=== PATIENT | female | born 1995 | race Caucasian/White ===

== ENCOUNTER 2017-01-04 20:23 | Emergency (ER) | payer BC ==
[2017-01-04 20:45] VITALS: BP 119/87
[2017-01-04] MEDS ORDERED: Acetaminophen/HYDROcodone 325-5 MG Tab PO ONE (21:47)
--- NOTE | 2017-01-06 12:23 | CR ---
INDICATION: Left shoulder pain. Decreased range of motion. No history of trauma. LEFT SHOULDER: Three views of the left shoulder revealed no definite bone or joint abnormality. MRI may be helpful for further evaluation, as felt to be clinically necessary. MTDD
--- NOTE | 2017-01-06 16:30 | ER ---
DATE SEEN: 01/04/2017 TIME SEEN: The patient was seen at 2040 hours. CHIEF COMPLAINT: Four months duration of pain in the left shoulder. She has not experienced any trauma. She tried physical therapy 2 days this week with increasing discomfort after physical therapy. She presently has 8/10 discomfort. 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 She does not perform heavy lifting or push heavy loads. She works Friday, , Friday, Friday, and Friday. She denies dysesthesia upper extremity and lower extremities. She has decreased strength in her hand because of muscle discomfort in the shoulder. No fever. No chills. No history of rheumatoid arthritis. PAST MEDICAL HISTORY: Depression. ALLERGIES: Codeine. No diabetes, heart disease, high blood pressure, or other serious illnesses. REVIEW OF SYSTEMS: Negative. PHYSICAL EXAMINATION: VITAL SIGNS: Blood pressure 119/87, heart rate 79, respirations 18, oxygen saturation 98%, temperature 36.9 degrees centigrade. HEENT: PERRLA intact. Pharynx without abnormality. LUNGS: Clear to auscultation. No cervical adenopathy. No thyromegaly. No masses in neck. HEART: S1, S2. No murmur. MUSCULOSKELETAL: Left shoulder, moderate discomfort anterior. No tenderness in long head of biceps. Mild AC discomfort. No displaced AC joint. No subluxation. Mild tenderness to the upper outer proximal portion of the humerus. No dysesthesia or compromise in sensation. Range of motion is normal with mild discomfort. DIAGNOSTIC STUDIES: X-ray reveals what suggests a cystic structure in the left upper humeral juxta articular surface that extends into the bone. It is possible there may be a growth. There is a difference in the density of the bone. Perhaps bone cyst, rule out bone growth or other significant abnormality, further follow up with orthopedist in 2 to 3 days. PLAN: Ice, Vicodin for breakthrough pain, otherwise Tylenol 1000 mg and 600 mg ibuprofen q.6 hours for pain. Off work tomorrow. ASSESSMENT: 1. Left humeral bone cyst/growth. 2. Shoulder pain. /[id number] LS/MODL
== END 2017-01-04 21:55 | disposition home or self-care (01) ==
LOC: FB.ED 20:23
DX: M25.512 Pain in left shoulder (principal); M85.622 Other cyst of bone, left upper arm; F32.9 Major depressive disorder, single episode, unspecified; Z88.5 Allergy status to narcotic agent
CPT/HCPCS: 73030-LT; 99283; A9270-GY

== ENCOUNTER 2017-06-27 13:01 | Emergency (ER) | payer BC ==
[2017-06-27] MEDS ORDERED: Ondansetron 8 MG Tab.DIS PO ONE (13:32)
[2017-06-27] MEDS ORDERED: Sodium Chloride 0.9% 1,000 ML IV ONE (13:48)
[2017-06-27] MEDS ORDERED: Promethazine 12.5 MG in Sodium Chloride 0.9% 50 ML IV STA (13:49)
[2017-06-27] MEDS ORDERED: Metoclopramide 10 MG/2 ML SDV IV STA (15:02)
--- NOTE | 2017-06-27 15:28 | EDM.PDOC ---
ED HPI GENERAL MEDICAL PROBLEM - General Chief Complaint: Abdominal Pain Stated Complaint: STOMACH PAIN Time Seen by Provider: 06/27/17 13:09 Source of Information: Reports: Patient, Family History Limitations: Reports: Other (epigastric pain, N/V) - History of Present Illness INITIAL COMMENTS - FREE TEXT/NARRATIVE: 22 years old w f came to the ed due to upper abd. pain, N/V. Pt was seen in in [place] one week ago, was given omeprazole, which did not help her symptoms. Pt denies , trauma. She was not able to eat for a weak. Pt came to the ed for further evaluation. Her vital were: BP 121/87 Pulse 87. Temp 36.9 Pulse ox 100% on RA. Onset: Unknown/Unsure Onset Date: 06/20/17 Onset Time: 08:00 Duration: Day(s):, Intermittent Location: Reports: Abdomen Quality: Reports: Ache, Burning, Dull, Same as Previous Episode Severity: Moderate Improves with: Reports: Other (not eating) Worsens with: Reports: Eating Context: Reports: Other (unknown) Associated Symptoms: Reports: Other (suprapubic pain) Abdominal Pain Score (Numeric/FACES): 6 - Related Data Allergies Allergy/AdvReac Type Severity Reaction Status Date / Time codeine Allergy Confusion Verified 06/27/17 13:11 Home Meds: Home Meds Escitalopram [Lexapro] 10 mg PO DAILY 01/04/17 [History] Albuterol Sulfate [Ventolin Hfa] 2 puff INH ASDIRECTED PRN 06/27/17 [History] Norgestimate-Ethinyl Estradiol [Tri-Previfem Tablet] 1 each PO DAILY 06/27/17 [ History] Omeprazole 20 mg PO BID 06/27/17 [History] Ondansetron [Zofran ODT] 4 mg PO Q6H PRN #20 tab.dis 06/27/17 [Rx] Sucralfate [Carafate] 1 gm PO QIDACANDBED 06/27/17 [History] Past Medical History HEENT History: Reports: Impaired Vision Cardiovascular History: Reports: None Respiratory History: Reports: None Gastrointestinal History: Reports: None Genitourinary History: Reports: None EDGER AUTOMATIC History: Reports: None Musculoskeletal History: Reports: None Neurological History: Reports: None Psychiatric History: Reports: Anxiety, Depression, Panic Attack Endocrine/Metabolic History: Reports: None Hematologic History: Reports: None Immunologic History: Reports: None Oncologic (Cancer) History: Reports: None Dermatologic History: Reports: None - Past Surgical History Head Surgeries/Procedures: Reports: None HEENT Surgical History: Reports: Oral Surgery, Tonsillectomy Cardiovascular Surgical History: Reports: None Respiratory Surgical History: Reports: None GI Surgical History: Reports: None Female Surgical History: Reports: None Endocrine Surgical History: Reports: None Neurological Surgical History: Reports: None Musculoskeletal Surgical History: Reports: Other (See Below) Other Musculoskeletal Surgeries/Procedures:: REMOVAL OF GANGLION CYST Oncologic Surgical History: Reports: None Social & Family History - Tobacco Use Smoking Status *Q: Current Every Day Smoker Years of Tobacco use: 7 Packs/Tins Daily: 1 Second Hand Smoke Exposure: No - Caffeine Use Caffeine Use: Reports: None - Recreational Drug Use Recreational Drug Use: Yes Drug Use in Last 12 Months: Yes Recreational Drug Type: Reports: Marijuana/Hashish Recreational Drug Use Frequency: Daily Recreational Drug Last Use: T-1 ED ROS GENERAL - Review of Systems Review Of Systems: See Below Constitutional: Reports: No Symptoms HEENT: Reports: No Symptoms Respiratory: Reports: No Symptoms Cardiovascular: Reports: No Symptoms Endocrine: Reports: No Symptoms GI/Abdominal: Reports: Abdominal Pain, Nausea, Vomiting : Reports: Pain (suprapubic) Musculoskeletal: Reports: No Symptoms Skin: Reports: No Symptoms Neurological: Reports: No Symptoms Psychiatric: Reports: No Symptoms Hematologic/Lymphatic: Reports: No Symptoms Immunologic: Reports: No Symptoms ED EXAM, GI/ABD - Physical Exam Exam: See Below Exam Limited By: No Limitations General Appearance: Alert, WD/WN, Mild Distress Eyes: Bilateral: Normal Appearance Ears: Normal External Exam Nose: Normal Inspection, Normal Mucosa Throat/Mouth: Normal Inspection, Normal Lips, Normal Teeth, Other (decr. moisture of mucosal membrane) Head: Atraumatic, Normocephalic Neck: Normal Inspection, Supple, Non-Tender, Full Range of Motion Respiratory/Chest: No Respiratory Distress, Lungs Clear, Normal Breath Sounds, No Accessory Muscle Use, Chest Non-Tender Cardiovascular: Normal Peripheral Pulses, Regular Rate, Rhythm, No Edema GI/Abdominal Exam: Normal Bowel Sounds, No Organomegaly, No Abnormal Bruit, Tender (epigastric) (Female) Exam: Deferred Rectal (Female) Exam: Deferred Back Exam: Normal Inspection, Full Range of Motion Extremities: Normal Inspection, Normal Range of Motion, Non-Tender, No Pedal Edema Neurological: Alert, Oriented, CN II-XII Intact, Normal Cognition, Normal Gait, Normal Reflexes, No Motor/Sensory Deficits Psychiatric: Normal Affect, Normal Mood Skin Exam: Warm, Dry, Intact, Normal Color, No Rash Lymphatic: No Adenopathy Course - Vital Signs Text/Narrative:: 22 years old w f came to the ed due to upper abd. pain, N/V. Pt was seen in in [place] one week ago, was given omeprazole, which did not help her symptoms. Pt denies , trauma. She was not able to eat for a weak. Pt came to the ed for further evaluation. Her vital were: BP 121/87 Pulse 87. Temp 36.9 Pulse ox 100% on RA. Pt is taking at home Maalox, occasionally. PE: Epigastic tenderness, suprapubic tenderness. Labs: CBC and BMP were nl. UDS was pos for THC products and Tricylics UA pos for bili, and occult blood, preg. neg Impression: Gastritis, dehydration Tx: NS. Zofran, Protronix and Reglan made her nauseas to subside. Protonix helped her gastric pain. Reexam; Nausea subsided, epigastric pain improved from a 10/10 to 3/10 pain and she felt fine to be discharged. Plan: D/C with instructions Last Recorded V/S: Last Vital Signs Temp 36.8 C 06/27/17 13:09 Pulse 61 06/27/17 15:32 Resp 14 06/27/17 15:32 BP 102/61 06/27/17 15:32 Pulse Ox 100 06/27/17 15:32 - Orders/Labs/Meds Labs: Laboratory Tests 06/27/17 06/27/17 06/27/17 Range/Units 13:32 13:32 13:32 WBC (4.5-12.0) X10-3/uL RBC (3.23-5.20) x10(6)uL Hgb (11.5-15.5) g/dL Hct (30.0-51.3) % MCV (80-96) fL MCH (27.7-33.6) pg MCHC (32.2-35.4) g/dL RDW (11.5-15.5) % Plt Count (125-369) X10(3)uL MPV (7.4-10.4) fL Neut % (Auto) (46-82) % Lymph % (Auto) (13-37) % [place] % (Auto) (4-12) % Eos % (Auto) (1.0-5.0) % Baso % (Auto) (0-2) % Neut # (Auto) (1.6-8.3) # Lymph # (Auto) (0.6-5.0) # [place] # (Auto) (0.0-1.3) # Eos # (Auto) (0.0-0.8) # Baso # (Auto) (0.0-0.2) # Sodium (135-145) mmol/L Potassium (3.5-5.3) mmol/L Chloride (100-110) mmol/L Carbon Dioxide (23-29) mmol/L BUN (5-20) mg/dL Creatinine (0.6-1.3) mg/dL Est Cr Clr Drug Dosing mL/min Estimated GFR (MDRD) (>60) BUN/Creatinine Ratio (9-20) Glucose (80-116) mg/dL Calcium (8.6-10.2) mg/dL Total Bilirubin (0.1-1.3) mg/dL Direct Bilirubin (0.1-0.2) mg/dL AST (5-27) IU/L ALT (14-26) IU/L Alkaline Phosphatase (56-112) IU/L Total Protein (6.0-8.0) g/dL Albumin (3.5-5.2) g/dL Urine Color Yellow (YELLOW) Urine Appearance Slightly cloudy (CLEAR) Urine pH 6.0 (5.0-6.5) Ur Specific [place] 1.015 (1.010-1.025) Urine Protein Negative (NEGATIVE) mg/dL Urine Glucose (UA) Normal (NEGATIVE) mg/dL Urine Ketones 15 H (NEGATIVE) mg/dL Urine Occult Blood Moderate H (NEGATIVE) Urine Nitrite Negative (NEGATIVE) Urine Bilirubin Small H (NEGATIVE) Urine Urobilinogen Normal (NEGATIVE) mg/dL Ur Leukocyte Esterase Negative (NEGATIVE) Urine RBC 0-5 (0) Urine WBC 0-5 (0) Ur Squamous Epith Cells Few H (NS,R,O) Urine Bacteria Few H (NS) Urine HCG, Qual Negative (NEGATIVE) Urine Opiates Screen Negative (NEGATIVE) Ur Oxycodone Screen Negative (NEGATIVE) Ur Propoxyphene Screen Negative (NEGATIVE) Ur Barbituates Screen Negative (NEGATIVE) Ur Tricyclics Screen Positive H (NEGATIVE) Ur Phencyclidine Scrn Negative (NEGATIVE) Ur Amphetamine Screen Negative (NEGATIVE) Urine MDMA Screen Negative (NEGATIVE) U Benzodiazepines Scrn Negative (NEGATIVE) U Cocaine Metab Screen Negative (NEGATIVE) U Marijuana (THC) Screen Positive H (NEGATIVE) 06/27/17 06/27/17 Range/Units 14:04 14:04 WBC 8.2 (4.5-12.0) X10-3/uL RBC 4.69 (3.23-5.20) x10(6)uL Hgb 13.7 (11.5-15.5) g/dL Hct 40.2 (30.0-51.3) % MCV 85.8 (80-96) fL MCH 29.2 (27.7-33.6) pg MCHC 34.1 (32.2-35.4) g/dL RDW 12.7 (11.5-15.5) % Plt Count 307 (125-369) X10(3)uL MPV 8.1 (7.4-10.4) fL Neut % (Auto) 68.3 (46-82) % Lymph % (Auto) 24.8 (13-37) % [place] % (Auto) 5.5 (4-12) % Eos % (Auto) 1 (1.0-5.0) % Baso % (Auto) 0 (0-2) % Neut # (Auto) 5.6 (1.6-8.3) # Lymph # (Auto) 2.0 (0.6-5.0) # [place] # (Auto) 0.5 (0.0-1.3) # Eos # (Auto) 0.1 (0.0-0.8) # Baso # (Auto) 0.0 (0.0-0.2) # Sodium 137 (135-145) mmol/L Potassium 3.9 (3.5-5.3) mmol/L Chloride 103 (100-110) mmol/L Carbon Dioxide 24 (23-29) mmol/L BUN 6 (5-20) mg/dL Creatinine 0.7 (0.6-1.3) mg/dL Est Cr Clr Drug Dosing 123.01 mL/min Estimated GFR (MDRD) > 60 (>60) BUN/Creatinine Ratio 8.6 L (9-20) Glucose 99 (80-116) mg/dL Calcium 9.1 (8.6-10.2) mg/dL Total Bilirubin 0.5 (0.1-1.3) mg/dL Direct Bilirubin 0.1 (0.1-0.2) mg/dL AST 24 (5-27) IU/L ALT 21 (14-26) IU/L Alkaline Phosphatase 85 (56-112) IU/L Total Protein 8.0 (6.0-8.0) g/dL Albumin 4.3 (3.5-5.2) g/dL Urine Color (YELLOW) Urine Appearance (CLEAR) Urine pH (5.0-6.5) Ur Specific [place] (1.010-1.025) Urine Protein (NEGATIVE) mg/dL Urine Glucose (UA) (NEGATIVE) mg/dL Urine Ketones (NEGATIVE) mg/dL Urine Occult Blood (NEGATIVE) Urine Nitrite (NEGATIVE) Urine Bilirubin (NEGATIVE) Urine Urobilinogen (NEGATIVE) mg/dL Ur Leukocyte Esterase (NEGATIVE) Urine RBC (0) Urine WBC (0) Ur Squamous Epith Cells (NS,R,O) Urine Bacteria (NS) Urine HCG, Qual (NEGATIVE) Urine Opiates Screen (NEGATIVE) Ur Oxycodone Screen (NEGATIVE) Ur Propoxyphene Screen (NEGATIVE) Ur Barbituates Screen (NEGATIVE) Ur Tricyclics Screen (NEGATIVE) Ur Phencyclidine Scrn (NEGATIVE) Ur Amphetamine Screen (NEGATIVE) Urine MDMA Screen (NEGATIVE) U Benzodiazepines Scrn (NEGATIVE) U Cocaine Metab Screen (NEGATIVE) U Marijuana (THC) Screen (NEGATIVE) Meds: Medications Discontinued Medications Generic Name Dose Route Start Last Admin Trade Name Freq PRN Reason Stop Dose Admin Sodium Chloride 1,000 mls @ 999 mls/hr 06/27/17 13:48 06/27/17 13:56 Normal Saline IV 06/27/17 14:48 999 mls/hr .BOLUS ONE Administration Promethazine HCl 12.5 mg/ 50.5 mls @ 200 mls/hr 06/27/17 13:49 06/27/17 14:01 Sodium Chloride IV 06/27/17 14:04 200 mls/hr ONETIME STA Administration Metoclopramide HCl 10 mg 06/27/17 15:02 06/27/17 15:08 Reglan IV 06/27/17 15:03 10 mg ONETIME STA Administration Ondansetron HCl 8 mg 06/27/17 13:32 06/27/17 13:37 Zofran Odt PO 06/27/17 13:33 8 mg ONETIME ONE Administration Departure - Departure Time of Disposition: 15:29 Disposition: Home, Self-Care 01 Condition: Good Clinical Impression: Dehydration Gastritis Qualifiers: Gastritis type: unspecified gastritis Chronicity: acute Gastritis bleeding: without bleeding Qualified Code(s): K29.00 - Acute gastritis without bleeding - Discharge Information Prescriptions: Ondansetron [Zofran ODT] 4 mg PO Q6H PRN #20 tab.dis PRN Reason: for nausea and vomiting Referrals: Barbara Downing NP [Primary Care Provider] - Forms: ED Department Discharge Additional Instructions: Please avoid spicy and sugary food, please take 30 cc a maalox 3 hours after dinner, Zofran for nausea, please f/u, come back to the ed if your symptoms get worse acutely
[2017-06-27 15:34] VITALS: BP 102/61
== END 2017-06-27 15:32 | disposition home or self-care (01) ==
LOC: FB.ED 13:01
DX: E86.0 Dehydration (principal); K29.00 Acute gastritis without bleeding; F17.210 Nicotine dependence, cigarettes, uncomplicated; F41.0 Panic disorder [episodic paroxysmal anxiety]; F32.9 Major depressive disorder, single episode, unspecified; Z79.899 Other long term (current) drug therapy; Z88.5 Allergy status to narcotic agent; Z90.89 Acquired absence of other organs
CPT/HCPCS: 36415; 80048; 80076; 80305; 81001; 81025; 85025; 96361; 96374; 96375; 99284; A9270; J2550; J2765; J7040; J7050